=== PATIENT | female | born 1945 | race Native Hawaiian/Other Pacific Islander ===

== ENCOUNTER 2020-12-01 12:14 | Outpatient (CLI) | payer OTHER ==
[2020-12-01 12:40] LABS: PLATELET COUNT 274 K/uL (152-353)
== END 2020-12-01 19:40 | disposition home or self-care (01) ==
LOC: LABW 12:14
PROVIDERS: ATTEND Internal Medicine Cardiovascular Disease
DX: D64.9 Anemia, unspecified (principal)
CPT/HCPCS: 36415; 83540; 83550; 85027